=== PATIENT | female | born 1965 ===

== ENCOUNTER 2021-02-06 10:26 | Emergency (ER) | payer MEDICAID, OTHER ==
[~2021-02-06] VITALS: Ht 167.6 cm; Wt 77.1 kg
[2021-02-06 10:28] VITALS: BP 131/80
== END 2021-02-06 13:12 | disposition home or self-care (01) ==
LOC: ER 10:26
DX: S16.1XXA Strain of muscle, fascia and tendon at neck level, initial encounter (principal); S20.222A Contusion of left back wall of thorax, initial encounter; I10 Essential (primary) hypertension; V43.52XA Car driver injured in collision with other type car in traffic accident, initial encounter; Y93.89 Activity, other specified; Y92.410 Unspecified street and highway as the place of occurrence of the external cause; Y99.8 Other external cause status
CPT/HCPCS: 72040